=== PATIENT | female | born 1955 | race Caucasian/White ===

== ENCOUNTER → 2016-05-29 | Outpatient (CLI) | payer BC ==
--- NOTE | 2016-05-29 16:03 | DIAGNOSTIC IMAGING REPORT ---
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 DISCUSSION: The bones and joint spaces appear intact. There is no evidence of fracture, dislocation or bony disease. There is no evidence for soft tissue swelling. IMPRESSION: Negative study. Electronically signed by: Byron Dorantes M.D. 05/29/2016 4:01 PM
--- NOTE | 2016-05-29 16:04 | DIAGNOSTIC IMAGING REPORT ---
LEFT HAND MIN 3 VIEWS ROUTINE CLINICAL HISTORY: Symmetrical polyarthritis COMPARISON: None. DISCUSSION: There is mild periarticular osteopenia. There are no acute fractures. There are no erosive changes. 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 IMPRESSION: 1. No fractures identified 2. No evidence of erosive disease 3. Periarticular osteopenia 4. Lunate cyst Electronically signed by: Jean Vuong M.D. 05/29/2016 4:02 PM
[2016-05-29 16:36] LABS: BASO % 0.4 %; BASO ABS # 0.03 K/uL (0-0.2); COMPLETE YES; EOS % 2.9 %; HEMATOCRIT 41.4 % (37-47); IG% 0.2 %; LYMPH % 38.6 %; LYMPH ABS # 3.29 K/uL (1.2-3.4); MEAN CELL VOLUME 92.2 fL (80-100); MEAN CORPUSCULAR HEMOGLOBIN 31.6 pg (25-34); MEAN CORPUSCULAR HGB CONC 34.3 g/dl (32-36); MEAN PLATELET VOLUME 9.6 fL (7.4-10.4); MONO % 7.9 %; PLATELET COUNT 390 K/uL (130-400); RED BLOOD COUNT 4.49 M/uL (4.2-5.4); WHITE BLOOD COUNT 8.52 K/uL (4.8-10.8)
[2016-05-29 16:58] LABS: ALT/SGPT 23 U/L (12-78); AST/SGOT 13 U/L (15-37); CREATININE 0.92 mg/dl (0.60-1.20); TOTAL IRON BINDING CAPACITY 334 mcg/dl (250-450)
[2016-05-29 17:00] LABS: ALKALINE PHOSPHATASE 107 U/L (45-117); RHEUMATOID FACTOR < 10.0 U/mL (0-15)
[2016-06-06 04:54] LABS: ANTI-CENTROMERE AB <1.0 NEG AI (<1.0 NEG); ANTI-SS-A <1.0 NEG AI (<1.0 NEG); ANTI-SS-B <1.0 NEG AI (<1.0 NEG); CYCLIC CITRULLINATED PEPT IGG <16 UNITS (<20); DNA ds CRITHIDIA POSITIVE (NEGATIVE); PARVOVIRUS IgG INDEX 7.7 index (<0.9); PARVOVIRUS IgM INDEX 0.2 index (<0.9); Sm Antibody <1.0 NEG AI (<1.0 NEG)
== END | disposition home or self-care (01) ==
LOC: C.RAD1850 15:43
PROVIDERS: ATTEND Internal Medicine Rheumatology
DX: M13.80 Other specified arthritis, unspecified site (principal); M85.842 Other specified disorders of bone density and structure, left hand; M85.60 Other cyst of bone, unspecified site

== ENCOUNTER → 2016-07-11 | Outpatient (CLI) | payer BC | END | disposition home or self-care (01) | LOC: C.LAB1850 17:03 | PROVIDERS: ATTEND Internal Medicine Rheumatology | DX: M13.80 Other specified arthritis, unspecified site (principal); M35.3 Polymyalgia rheumatica; R70.0 Elevated erythrocyte sedimentation rate ==

== ENCOUNTER → 2016-08-16 | Outpatient (CLI) | payer BC ==
[2016-08-17 15:54] LABS: GAMMA GLOBULIN 0.8 G/DL (0.8-1.7); TOTAL PROTEIN 6.9 G/DL (6.2-8.3)
== END | disposition home or self-care (01) ==
LOC: C.LAB1850 10:46
PROVIDERS: ATTEND Internal Medicine Rheumatology
DX: M35.3 Polymyalgia rheumatica (principal); R70.0 Elevated erythrocyte sedimentation rate

== ENCOUNTER → 2016-10-09 | Outpatient (CLI) | payer BC ==
[2016-10-09 14:48] LABS: BASO % 0.3 %; BASO ABS # 0.03 K/uL (0-0.2); COMPLETE YES; EOS % 0.9 %; HEMATOCRIT 42.5 % (37-47); IG% 0.3 %; LYMPH ABS # 1.26 K/uL (1.2-3.4); MEAN CELL VOLUME 91.6 fL (80-100); MEAN CORPUSCULAR HGB CONC 32.7 g/dl (32-36); MEAN PLATELET VOLUME 9.8 fL (7.4-10.4); MONO % 6.9 %; NEUT % 80.6 %; PLATELET COUNT 287 K/uL (130-400); RED BLOOD COUNT 4.64 M/uL (4.2-5.4)
[2016-10-09 15:09] LABS: ALT/SGPT 32 U/L (12-78); C-REACTIVE PROTEIN 0.96 mg/dl (0-0.29)
[2016-10-09 15:12] LABS: ALKALINE PHOSPHATASE 77 U/L (45-117); AST/SGOT 22 U/L (15-37)
== END | disposition home or self-care (01) ==
LOC: C.LAB1850 13:02
PROVIDERS: ATTEND Internal Medicine Rheumatology
DX: M13.80 Other specified arthritis, unspecified site (principal); M35.3 Polymyalgia rheumatica; R70.0 Elevated erythrocyte sedimentation rate

== ENCOUNTER → 2016-11-30 | Outpatient (CLI) | payer BC | END | disposition home or self-care (01) | LOC: C.LAB1850 15:06 | PROVIDERS: ATTEND Internal Medicine Rheumatology | DX: M35.3 Polymyalgia rheumatica (principal); R70.0 Elevated erythrocyte sedimentation rate; Z79.52 Long term (current) use of systemic steroids ==